=== PATIENT | female | born 1950 | race African-American/Black ===

== ENCOUNTER 2022-05-30 04:44 | Emergency (ER) | payer MEDICARE, OTHER ==
[~2022-05-30] VITALS: Ht 165.1 cm; Wt 77.1 kg
[2022-05-30] MEDS ORDERED: OLME20TA13 PO (05:05)
[2022-05-30] MEDS ORDERED: SODIUM BICARBONATE 4.2 % (NEUT) 5 ML VIAL TP ONE (05:15)
[2022-05-30] MEDS ORDERED: CEphaleXIN 500 MG CAPSULE PO ONE (05:15)
[2022-05-30] MEDS ORDERED: LIDOCAINE HCL 2% 20 ML VIAL TP ONE (05:15)
[2022-05-30] MEDS ORDERED: TDAP DIPH,PERTUSS,TET VAC/PF 0.5 ML DISP.SYRIN IM ONE ×2 (05:15→05:27)
[2022-05-30] MEDS ORDERED: ONDANSETRON ODT 4 MG TAB.RAPDIS ONE (05:18)
[2022-05-30] MEDS ORDERED: HYDROCODONE/APAP 10-325 MG TABLET ONE (05:19)
[2022-05-30] MEDS ORDERED: LIDOCAINE HCL 2% 20 ML VIAL ONE (05:23)
[2022-05-30] MEDS ORDERED: SODIUM BICARBONATE 4.2 % (NEUT) 5 ML VIAL ONE (05:23)
[2022-05-30] MEDS ORDERED: CEphaleXIN 500 MG CAPSULE ONE (05:26)
[2022-05-30] MEDS ORDERED: OXYC-128 PO (05:27)
[2022-05-30] MEDS ORDERED: CEPH500T PO (05:27)
[2022-05-30] MEDS ORDERED: HYDROCODONE/APAP 10-325 MG TABLET PO ONE (05:30)
[2022-05-30] MEDS ORDERED: ONDANSETRON ODT 4 MG TAB.RAPDIS SL ONE (05:30)
[2022-05-30 06:06] VITALS: BP 165/99
== END 2022-05-30 06:00 | disposition home or self-care (01) ==
LOC: ER 04:53
DX: S61.213A Laceration without foreign body of left middle finger without damage to nail, initial encounter (principal); I10 Essential (primary) hypertension; Z79.899 Other long term (current) drug therapy; Z88.1 Allergy status to other antibiotic agents; Z88.2 Allergy status to sulfonamides; Z88.5 Allergy status to narcotic agent; Z88.8 Allergy status to other drugs, medicaments and biological substances; W23.0XXA Caught, crushed, jammed, or pinched between moving objects, initial encounter; Y93.89 Activity, other specified; Y92.89 Other specified places as the place of occurrence of the external cause; Y99.8 Other external cause status
CPT/HCPCS: 99284; 73140; 90715; 90471; 12001; J3490 ×2; A4663; Q0162